=== PATIENT | male | born 1955 | race Two or more races ===

== ENCOUNTER 2022-03-21 09:16 | Inpatient (IN) | payer BC, MEDICARE ==
[~2022-03-21] VITALS: Ht 167.6 cm; Wt 98.3 kg
[~2022-03-21 09:16] MED LIST: GLIP-197; LISI40TA11; METF-916
[2022-03-21] MEDS ORDERED: cefTRIAXone 1GM/50ML D5W 50 ML IV ONE (10:30)
[2022-03-21] MEDS ORDERED: CLINDAMYCIN 600MG IV 50 ML IV ONE (10:30)
[2022-03-21] MEDS ORDERED: SODIUM CHLORIDE 0.9% 500 ML IV ONE ×2 (10:30→12:00)
[2022-03-21 11:13] LABS: Basophils # (auto) 0 10 ^3/uL (0-0.2); Basophils % (auto) 0.7 % (0.0-2.0); Eosinophils # (auto) 0 10 ^3/uL (0-0.8); Eosinophils % (auto) 0.8 % (0.0-7.0); Hematocrit 46.6 % (41.0-53.0); Hemoglobin 15.8 g/dL (13.5-17.5); Lymphocytes # (auto) 1.2 10 ^3/uL (0.4-5.4); Lymphocytes % (auto) 19.9 % (10.0-50.0); Mean Corpuscular Hemoglobin 30.6 pg (28.0-32.0); Mean Corpuscular Hgb Conc. 33.8 g/dL (32.0-36.0); Mean Corpuscular Volume 90.5 fL (80.0-100.0); Monocytes # (auto) 0.4 10 ^3/uL (0-1.3); Monocytes % (auto) 6.8 % (0.0-12.0); Neutrophils # (auto) 4.4 10 ^3/uL (1.6-8.6); Neutrophils % (auto) 71.8 % (37.0-80.0); Red Blood Cells 5.15 10^6/uL (4.5-5.90); Red Cell Distribution Width 12.6 % (11.8-14.3); White Blood Cell 6.2 10^3/uL (4.4-10.8)
[2022-03-21 11:21] LABS: Potassium 4.1 mmol/L (3.5-5.1)
[2022-03-21 11:29] LABS: Albumin 3.9 g/dL (3.4-5.0); BUN/Creatinine Ratio 19.6; Calcium 9.3 mg/dL (8.5-10.1)
[2022-03-21 11:31] LABS: Bilirubin, Total 0.7 mg/dL (0.2-1.0); Total Protein 8.4 g/dL (6.4-8.2)
[2022-03-21] MEDS ORDERED: ONDANSETRON HCL 4 MG/2 ML VIAL IV PRN (13:00)
[2022-03-21] MEDS ORDERED: MORPHINE SULFATE INJ 2 MG/ml SYRG IV PRN (13:00)
[2022-03-21] MEDS ORDERED: DOCUSATE SOD 100 MG CAP PO PRN (13:00)
[2022-03-21] MEDS: SODIUM CHLORIDE 0.9% 1,000 ML IV SCH ×2 (13:27→21:20)
[2022-03-21] MEDS ORDERED: DEXTROSE (50%) 50ML SYRG IV PRN (13:30)
[2022-03-21] MEDS: ACCU-CHEK COMFORT CURVE STRIP VI SCH ×2 (18:05→23:28)
[2022-03-21] MEDS: InsuLIN REG 1unit/0.01ml Soln (100units/ml) SC SCH ×2 (18:06→23:27)
[2022-03-21 18:30] VITALS: BP 144/74
[2022-03-21 20:05] VITALS: BP 132/74
[2022-03-21] MEDS: CLINDAMYCIN 600MG IV 50 ML IV SCH (20:36)
[2022-03-21 22:00] VITALS: BP 132/74
[2022-03-22 05:00] VITALS: BP 130/75
[2022-03-22] MEDS: CLINDAMYCIN 600MG IV 50 ML IV SCH ×3 (05:28→20:54)
[2022-03-22 05:48] LABS: Basophils # (auto) 0 10 ^3/uL (0-0.2); Basophils % (auto) 0.8 % (0.0-2.0); Eosinophils # (auto) 0.2 10 ^3/uL (0-0.8); Eosinophils % (auto) 3.1 % (0.0-7.0); Hematocrit 41.8 % (41.0-53.0); Hemoglobin 14.4 g/dL (13.5-17.5); Lymphocytes # (auto) 1.6 10 ^3/uL (0.4-5.4); Lymphocytes % (auto) 27.5 % (10.0-50.0); Mean Corpuscular Hgb Conc. 34.3 g/dL (32.0-36.0); Mean Corpuscular Volume 90.2 fL (80.0-100.0); Monocytes # (auto) 0.5 10 ^3/uL (0-1.3); Monocytes % (auto) 8.5 % (0.0-12.0); Neutrophils # (auto) 3.5 10 ^3/uL (1.6-8.6); Neutrophils % (auto) 60.1 % (37.0-80.0); Nucleated Red Blood Cells % 0.1 %; Red Blood Cells 4.64 10^6/uL (4.5-5.90); Red Cell Distribution Width 12.3 % (11.8-14.3); White Blood Cell 5.8 10^3/uL (4.4-10.8)
[2022-03-22 06:12] LABS: Albumin 2.8 g/dL (3.4-5.0); BUN/Creatinine Ratio 21.9; Calcium 8.4 mg/dL (8.5-10.1); Potassium 3.8 mmol/L (3.5-5.1)
[2022-03-22 06:15] LABS: Bilirubin, Total 0.4 mg/dL (0.2-1.0); Total Protein 6.5 g/dL (6.4-8.2)
[2022-03-22] MEDS: InsuLIN REG 1unit/0.01ml Soln (100units/ml) SC SCH ×4 (06:20→21:19)
[2022-03-22] MEDS: SODIUM CHLORIDE 0.9% 1,000 ML IV SCH (06:46)
[2022-03-22] MEDS: ACCU-CHEK COMFORT CURVE STRIP VI SCH ×4 (07:50→21:12)
[2022-03-22 09:11] VITALS: BP 126/75
[2022-03-22 12:43] VITALS: BP 131/72
[2022-03-22] MEDS ORDERED: cefTRIAXone 1GM/50ML D5W 50 ML IV ONE (13:30)
[2022-03-22] MEDS ORDERED: OMNIPAQUE ORAL SOLN 500ml 12mg/ml PO ONE (14:09)
[2022-03-22 15:35] LABS: Urine Bacteria NONE SEEN /hpf (None Seen); Urine Blood Negative /uL (Negative); Urine Specific Gravity 1.008 (1.001-1.035); Urine WBC <1 /hpf (0 - 3)
[2022-03-22 16:42] VITALS: BP 124/71
[2022-03-22] MEDS ORDERED: IOHEXOL 300 MG/ML 100ML BOTTLE IJ ONE (17:22)
[2022-03-22 20:00] VITALS: BP 100/32
[2022-03-22 22:00] VITALS: BP 100/32
[2022-03-23] MEDS: CLINDAMYCIN 600MG IV 50 ML IV SCH ×3 (04:00→21:33)
[2022-03-23 05:00] VITALS: BP 128/69
[2022-03-23] MEDS: ACCU-CHEK COMFORT CURVE STRIP VI SCH ×4 (06:42→22:31)
[2022-03-23] MEDS: InsuLIN REG 1unit/0.01ml Soln (100units/ml) SC SCH ×4 (06:45→22:33)
[2022-03-23 09:00] VITALS: BP 125/78
[2022-03-23] MEDS: cefTRIAXone 1GM/50ML D5W 50 ML IV SCH (09:13)
[2022-03-23 13:00] VITALS: BP 137/71
[2022-03-23 13:36] LABS: INR 1.01 (0.9-1.15); Partial Thromboplastin Time 27.1 sec (24.6-33.4)
[2022-03-23 16:50] VITALS: BP 114/72
[2022-03-23 20:00] VITALS: BP 114/70
[2022-03-23 22:00] VITALS: BP_SYST 105; BP_SYST 114; BP_DIAS 66; BP_DIAS 70
[2022-03-24] MEDS: CLINDAMYCIN 600MG IV 50 ML IV SCH (04:16)
[2022-03-24 05:00] VITALS: BP 118/59
[2022-03-24] MEDS: ACCU-CHEK COMFORT CURVE STRIP VI SCH ×2 (06:26→14:32)
[2022-03-24] MEDS: InsuLIN REG 1unit/0.01ml Soln (100units/ml) SC SCH ×2 (06:31→14:33)
[2022-03-24 08:15] VITALS: BP 123/68
[2022-03-24] MEDS: cefTRIAXone 1GM/50ML D5W 50 ML IV SCH (08:40)
[2022-03-24 11:55] VITALS: BP 121/64
[2022-03-24] MEDS ORDERED: EMPA1TAB PO (13:25)
[2022-03-24] MEDS ORDERED: CLIN300C8 PO (13:25)
[2022-03-24] MEDS ORDERED: GLIP10TA16 PO (13:25)
[2022-03-24] MEDS ORDERED: METF-869 PO (13:25)
[2022-03-24] MEDS ORDERED: LACT1CAP2 PO (13:25)
[2022-03-24 14:14] VITALS: BP 123/68
== END 2022-03-24 15:30 | disposition home or self-care (01) | DRG 603 ==
LOC: ER 09:16 → OVERFLOW 12:58 → WEST WING 17:38
PROVIDERS: ADMIT Nurse Practitioner Family; ATTEND Internal Medicine
DX: L02.31 Cutaneous abscess of buttock (principal); K61.0 Anal abscess; E66.9 Obesity, unspecified; L03.317 Cellulitis of buttock; Z68.35 Body mass index [BMI] 35.0-35.9, adult; E11.9 Type 2 diabetes mellitus without complications; Z20.822 Contact with and (suspected) exposure to COVID-19
CPT/HCPCS: 36415; 72192; 74177; 80053; 81001; 82043; 82306; 82962; 83036; 83605; 84443; 85025; 85610; 85730; 87040; 87426; 96361; 96365; 96367; G0378; J0696; J1815; J3490

== ENCOUNTER → 2022-06-25 | Outpatient (CLI) | payer BC ==
[~2022-06-25] MED LIST changes: +CLIN300C8 PO; +EMPA1TAB PO; -GLIP-197; +GLIP10TA16 PO; +LACT1CAP2 PO; -LISI40TA11; +METF-869 PO; -METF-916
[2022-06-25 09:01] LABS: Albumin 3.9 g/dL (3.4-5.0); Magnesium 2.3 mg/dL (1.6-2.6)
== END | disposition home or self-care (01) ==
LOC: LAB 08:11
PROVIDERS: ATTEND Internal Medicine
DX: E11.9 Type 2 diabetes mellitus without complications (principal); E55.9 Vitamin D deficiency, unspecified
CPT/HCPCS: 36415; 80061; 82040; 82306; 83036; 83735; 84153

== ENCOUNTER → 2023-08-05 | Outpatient (CLI) | payer BC ==
[~2023-08-05] MED LIST changes: +CLIN300C70 PO; -CLIN300C8 PO; -GLIP10TA16 PO; +GLIP10TA21 PO
[2023-08-05 07:45] LABS: Basophils # (auto) 0.1 10 ^3/uL (0-0.2); Basophils % (auto) 1.3 % (0.0-2.0); Eosinophils # (auto) 0.1 10 ^3/uL (0-0.8); Eosinophils % (auto) 2.2 % (0.0-7.0); Hematocrit 43.4 % (41.0-53.0); Hemoglobin 14.6 g/dL (13.5-17.5); Lymphocytes # (auto) 1.3 10 ^3/uL (0.4-5.4); Mean Corpuscular Hemoglobin 30.5 pg (28.0-32.0); Mean Corpuscular Hgb Conc. 33.6 g/dL (32.0-36.0); Mean Corpuscular Volume 90.8 fL (80.0-100.0); Monocytes # (auto) 0.3 10 ^3/uL (0-1.3); Monocytes % (auto) 7.1 % (0.0-12.0); Neutrophils # (auto) 2.5 10 ^3/uL (1.6-8.6); Neutrophils % (auto) 58.4 % (37.0-80.0); Red Blood Cells 4.78 10^6/uL (4.5-5.90); Red Cell Distribution Width 12.6 % (11.8-14.3); White Blood Cell 4.3 10^3/uL (4.4-10.8)
[2023-08-05 07:52] LABS: Urine Bacteria NONE SEEN /hpf (None Seen); Urine Blood Negative /uL (Negative); Urine Clarity Clear (Clear); Urine Color Colorless (Yellow); Urine Protein, UAD Negative (Negative); Urine Specific Gravity 1.013 (1.001-1.035); Urine Urobilinogen Normal (Negative); Urine WBC 1 /hpf (0 - 3); Urine pH 5.5 (5.0-8.0)
[2023-08-05 08:17] LABS: Creatinine, Urine 68.68 mg/dL (30.0-125.0)
[2023-08-05 08:20] LABS: Alanine Aminotransferase 14 U/L (7-40); Albumin 4.3 g/dL (3.2-4.8); Alkaline Phosphatase 57 U/L (46-116); Anion Gap 6 (5-15); Aspartate Aminotransferase 17 U/L (13-40); BUN/Creatinine Ratio 16.2 (10.0-20.0); Blood Urea Nitrogen 16 mg/dL (9-23); Calcium 9.5 mg/dL (8.5-10.1); Carbon Dioxide 29 mmol/L (20-30); Chloride 104 mmol/L (98-107); Glucose 150 mg/dL (74-106); LDL Cholesterol 101 mg/dL (< 100); Potassium 4.7 mmol/L (3.5-5.1); Sodium 139 mmol/L (136-145); Triglycerides 153 mg/dL (< 150)
[2023-08-05 08:21] LABS: Bilirubin, Total 0.6 mg/dL (0.2-1.0); Cholesterol 162 mg/dL (< 200); HDL Cholesterol 42 mg/dL (40-59); Total Protein 7.4 g/dL (5.7-8.2)
[2023-08-05 08:39] LABS: Erythrocyte Sedimentation Rate 8 mm/hr (0-20)
[2023-08-05 08:50] LABS: Prostate Specific Antigen 2.35 ng/mL (0.0-4.0)
[2023-08-05 08:55] LABS: Free T4 (Free Thyroxine) 1.03 ng/dL (0.89-1.76)
[2023-08-05 09:10] LABS: Uric Acid 8.2 mg/dL (3.7-9.2)
== END | disposition home or self-care (01) ==
LOC: LAB 07:20
PROVIDERS: ATTEND Internal Medicine
DX: E11.9 Type 2 diabetes mellitus without complications (principal); Z79.899 Other long term (current) drug therapy
CPT/HCPCS: 36415; 80053; 80061; 81001; 82043; 82570; 82607; 84153; 84439; 84443; 84550; 85025; 85652

== ENCOUNTER → 2024-03-15 | Outpatient (CLI) | payer BC, MEDICARE ==
[~2024-03-15] MED LIST changes: +CLIN1CAP70 PO; -CLIN300C70 PO
== END | disposition home or self-care (01) ==
LOC: XYW 07:35
PROVIDERS: ATTEND Student in an Organized Health Care Education/Training Program
DX: I51.89 Other ill-defined heart diseases (principal); R06.02 Shortness of breath; R06.00 Dyspnea, unspecified; E11.9 Type 2 diabetes mellitus without complications; E66.9 Obesity, unspecified
CPT/HCPCS: 93306

== ENCOUNTER → 2024-04-25 | Outpatient (CLI) | payer BC, MEDICARE ==
[~2024-04-25] VITALS: Ht 167.6 cm; Wt 100.7 kg
[2024-04-25] MEDS: ADENOSINE 85 MG in GIVE UN-DILUTED 0 ML IV STA (09:14)
--- NOTE | 2024-04-25 13:16 | DVHSR ---
APPROVED REPORT Exam: Nuclear Stress Test Indication: CARDIAC CLEARANCE Stress Tech: Breanna Ag Ht: 5 ft 6 in Wt: 222 lbs BSA: 2.09 m2 BMI: 35.82 Medical History Medical History: Diabetes, Hyperlipidemia Allergies: No known drug allergies Stress Test Details Stress Test: Pharmacological stress testing performed using 85 mg of Adenosine Reason for pharmacologic stress test: CARDIAC CLEARANCE. HR Resting HR: 95 bpmMax Heart Rate (APMHR): 151.253088 bpm Max HR Achieved: 99 bpmTarget HR (85% APMHR): 128.584442 bpm % of APMHR: 65.56 Recovery HR: 99 bpm BP Resting BP: 160/92 mmHg Recovery BP: 128/74 mmHg ECG Resting ECG: Sinus Rhythm Clinical Reason for Termination: Completed protocol Nurse Comments Pre Test: Outpatient received from Nuclear Medicine. Patient is A&O x4 and on room air. Connected to monitoring coordinator with baseline vitals obtained. LFA 22 PIVS X2 flush well. Reviewed POC, patient verba lized understanding, and consents to test. Post Test: Adenosine stress test performed per protocol. environmental laboratory technician administered Cardiolit e. Pt tolerated well and all vitals returned to baseline. Patient transferred back to [facility] with tech in stable condition. Stress ECG Conclusion Resting images shows near homogeneous uptake of radioactive tracer throughout the myocardium without evidence of myocardial infarction. Stress images shows near homogeneous uptake of radioactive tracer throughout the myocardium without e vidence of myocardial ischemia. Mildly reduced left ventricular systolic function at 49%. Impression: Negative stress test for ischemia, mildly reduced left ventricular systolic function low risk study. NM EXAM: Myocardial Perfusion REST/STRESS Imaging Protocol: Rest Tc-99m/Stress Tc-99m 1 day Resting Data Rest SPECT myocardial perfusion imaging was performed in supine position 60 minutes following the int ravenous injection of 13.1 mCi of Tc-99m Sestamibi. Time of rest injection: 799 Date: 04/25/2024 Time of rest imagin Date: 04/25/2024 Administration Route: IV Administration Site: Left Arm Pharmacologic Stress Pharmacologic stress test was performed by injecting Adenosine mg IV push followed by the intravenou s injection of 31 mCi of Tc-99m Sestamibi. Time of stress injection: 908 Date: 04/25/2024 Time of stress imagin Date: 04/25/2024 Administration Route: IV Administration Site: Left Arm Gated Stress SPECT was performed 60 minutes after stress injection. The images were gated to evaluate regional wall motion and calculate left ventricular ejection fracti on. Stress only was performed in the Supine position. Nuclear Conclusion ECG Findings: negative for ischemia Clinical Findings: negative for ischemia Nuclear Findings: negative for ischemia Exercise Capacity: not assessed Left Ventricular Function: abnormal Risk Study: low Resting images shows near homogeneous uptake of radioactive tracer throughout the myocardium without evidence of myocardial infarction. Stress images shows near homogeneous uptake of radioactive tracer throughout the myocardium without e vidence of myocardial ischemia. Mildly reduced left ventricular systolic function at 49%. Impression: Negative stress test for ischemia, mildly reduced left ventricular systolic function low risk study.
== END | disposition home or self-care (01) ==
LOC: XYW 06:43
PROVIDERS: ATTEND Student in an Organized Health Care Education/Training Program
DX: Z01.810 Encounter for preprocedural cardiovascular examination (principal); R94.31 Abnormal electrocardiogram [ECG] [EKG]; E11.9 Type 2 diabetes mellitus without complications; E78.5 Hyperlipidemia, unspecified
CPT/HCPCS: 78452; 93017; A9500; J0153